=== PATIENT | female | born 1950 | race American Indian/Alaskan Native ===

== ENCOUNTER 2017-06-25 13:01 | Inpatient (IN) | payer MEDICARE ==
--- NOTE | 2017-06-25 13:56 | Emergency Department Report ---
Chief Complaint: GI Bleed Stated Complaint: RECTAL BLEEDING Time Seen by Provider: 06/25/17 13:53 - HPI History of Present Illness: pt c/o bleeding from rectum that started this morning - ROS Review of Systems: - abd pain - Exam Physical Exam: pt looks well, non toxic. abd is soft and non tender MSE screening note: Focused history and physical exam performed. Due to findings the following was ordered: ekg, labs ED Disposition for MSE Condition: Stable
[2017-06-25 14:30] LABS: Basophils % (Auto) 0.5 % (0.0-1.8); Eosinophils % (Auto) 0.7 % (0.0-4.3); Hematocrit 35.5 % (30.3-42.9); Hemoglobin 11.8 gm/dl (10.1-14.3); Mean Corpuscular HGB Conc 33 % (30-34); Mean Corpuscular Hemoglobin 30 pg (28-32); Mean Corpuscular Volume 89 fl (79-97); Platelet Count 235 K/mm3 (140-440); Red Cell Distribution Width 13.2 % (13.2-15.2); White Blood Count 9.7 K/mm3 (4.5-11.0)
[2017-06-25 14:41] LABS: INR 0.95 (0.87-1.13)
[2017-06-25 14:42] LABS: Partial Thromboplastin Time 29.8 Sec. (24.2-36.6)
[2017-06-25 14:48] LABS: Albumin 4.1 g/dL (3.9-5); Albumin/Globulin Ratio 1.1 %; BUN/Creatinine Ratio 14.11; Bilirubin,Total 0.4 mg/dL (0.1-1.2); Calcium 8.7 mg/dL (8.4-10.2); Chloride 100.2 mmol/L (98-107); Potassium 4.2 mmol/L (3.6-5.0); Total Protein 7.7 g/dL (6.3-8.2)
[2017-06-25 18:11] LABS: Bilirubin,Urine NEG (Negative); Blood,Urine LG (Negative); Ketones,Urine NEG (Negative); Leukocyte Esterase,Urine LG (Negative); Nitrite,Urine NEG (Negative); Urobilinogen,Urine < 2.0 mg/dL (<2.0)
[2017-06-25 18:14] LABS: RBC,Urine > 182.0 /HPF (0.0-6.0); WBC,Urine > 182.0 /HPF (0.0-6.0)
--- NOTE | 2017-06-26 00:02 | Emergency Department Report ---
ED GI Bleed HPI - General Chief complaint: GI Bleed Stated complaint: RECTAL BLEEDING Time Seen by Provider: 06/25/17 13:53 Source: patient, family Mode of arrival: Ambulatory Limitations: No Limitations - History of Present Illness MD complaint: blood on toilet paper -: This morning Severity scale (0 -10): 5 Quality: painless Consistency: intermittent Improves with: none Worsens with: none Associated Symptoms: denies other symptoms. denies: abdominal pain, nausea, vomiting, epistaxis, fever/chills, loss of appetite - Related Data Home Medications Medication Instructions Recorded Confirmed Last Taken Aspirin 81 mg PO DAILY 06/25/17 06/26/17 06/24/17 08:00 Calcitriol [Rocaltrol] 0.25 mcg PO QDAY 06/25/17 06/26/17 06/24/17 08:00 Donepezil HCl 20 mg PO DAILY 06/25/17 06/26/17 06/24/17 08:00 Ferrous Sulfate [Feosol] 325 mg PO BID 06/25/17 06/26/17 06/24/17 08:00 Furosemide [Lasix TAB] 40 mg PO QDAY 06/25/17 06/26/17 06/24/17 08:00 Simvastatin [Zocor TAB] 20 mg PO QHS 06/25/17 06/26/17 06/24/17 21:00 Vitamin B Complex 1 each PO DAILY 06/25/17 06/26/17 06/24/17 08:00 amLODIPine [Norvasc] 10 mg PO DAILY 06/25/17 06/26/17 06/24/17 08:00 Allergies Allergy/AdvReac Type Severity Reaction Status Date / Time No Known Allergies Allergy Unverified 06/25/17 13:57 ED Review of Systems ROS: Stated complaint: RECTAL BLEEDING Other details as noted in HPI Comment: All other systems reviewed and negative Constitutional: denies: chills, fever Respiratory: denies: cough, shortness of breath Cardiovascular: denies: chest pain Gastrointestinal: hematochezia. denies: abdominal pain, nausea, vomiting, diarrhea, constipation Genitourinary: dysuria Neurological: denies: headache, paresthesias ED Past Medical Hx - Past Medical History Previous Medical History?: Yes Hx Hypertension: Yes Hx CVA: Yes Hx Diabetes: Yes Hx Renal Disease: Yes (no dialysis) - Surgical History Past Surgical History?: No - Social History Smoking Status: Never Smoker Substance Use Type: Prescribed - Medications Home Medications: Home Medications Medication Instructions Recorded Confirmed Last Taken Type Aspirin 81 mg PO DAILY 06/25/17 06/26/17 06/24/17 08:00 History Calcitriol [Rocaltrol] 0.25 mcg PO QDAY 06/25/17 06/26/17 06/24/17 08:00 History Donepezil HCl 20 mg PO DAILY 06/25/17 06/26/17 06/24/17 08:00 History Ferrous Sulfate [Feosol] 325 mg PO BID 06/25/17 06/26/17 06/24/17 08:00 History Furosemide [Lasix TAB] 40 mg PO QDAY 06/25/17 06/26/17 06/24/17 08:00 History Simvastatin [Zocor TAB] 20 mg PO QHS 06/25/17 06/26/17 06/24/17 21:00 History Vitamin B Complex 1 each PO DAILY 06/25/17 06/26/17 06/24/17 08:00 History amLODIPine [Norvasc] 10 mg PO DAILY 06/25/17 06/26/17 06/24/17 08:00 History ED Physical Exam - General Limitations: No Limitations General appearance: alert, in no apparent distress - ENT ENT exam: Present: normal exam - Neck Neck exam: Absent: tenderness - Respiratory Respiratory exam: Present: normal lung sounds bilaterally. Absent: respiratory distress, wheezes, rales, rhonchi, chest wall tenderness - Cardiovascular Cardiovascular Exam: Present: regular rate, normal rhythm, normal heart sounds - GI/Abdominal GI/Abdominal exam: Present: soft, normal bowel sounds. Absent: distended, tenderness, guarding, rebound, rigid, mass, bruit, pulsatile mass, hernia - Neurological Exam Neurological exam: Present: alert, oriented X3, CN II-XII intact - Skin Skin exam: Present: warm, intact, normal color ED Course Vital Signs 06/25/17 06/25/17 06/26/17 13:54 23:49 01:28 Temperature 98.3 F Pulse Rate 88 72 75 Respiratory 20 20 16 Rate Blood Pressure 157/87 Blood Pressure 148/71 144/73 [Left] O2 Sat by Pulse 100 99 100 Oximetry - Reevaluation(s) Reevaluation #1: 06/26/17 01:[address] Amado for admission. ED Medical Decision Making - Lab Data Result diagrams: 06/25/17 14:04 06/25/17 14:04 Critical care attestation.: If time is entered above; I have spent that time in minutes in the direct care of this critically ill patient, excluding procedure time. ED Disposition Clinical Impression: GI bleed Disposition: DC-09 OP ADMIT IP TO THIS HOSP Is pt being admited?: Yes Does the pt Need Aspirin: No Condition: Stable Referrals: PRIMARY CARE, [Primary Care Provider] - 3-5 Days Forms: Accompanied Note
[2017-06-26] MEDS ORDERED: MILK OF MAGNESIA PO PRN (01:34)
[2017-06-26] MEDS ORDERED: PROVENTIL IH PRN (01:34)
[2017-06-26] MEDS ORDERED: DULCOLAX PR PRN (01:34)
[2017-06-26] MEDS ORDERED: TYLENOL PO PRN (01:34)
[2017-06-26] MEDS ORDERED: ZOFRAN IV PRN (01:34)
--- NOTE | 2017-06-26 01:38 | History and Physical Report ---
<JENNIFER FREEMAN - Last Filed: 06/26/17 03:42> History of Present Illness Date of admission: 06/26/17 01:34 Medications and Allergies Allergies Allergy/AdvReac Type Severity Reaction Status Date / Time No Known Allergies Allergy Unverified 06/25/17 13:57 Home Medications Medication Instructions Recorded Confirmed Last Taken Type Aspirin 81 mg PO DAILY 06/25/17 06/26/17 06/24/17 08:00 History Calcitriol [Rocaltrol] 0.25 mcg PO QDAY 06/25/17 06/26/17 06/24/17 08:00 History Donepezil HCl 20 mg PO DAILY 06/25/17 06/26/17 06/24/17 08:00 History Ferrous Sulfate [Feosol] 325 mg PO BID 06/25/17 06/26/17 06/24/17 08:00 History Furosemide [Lasix TAB] 40 mg PO QDAY 06/25/17 06/26/17 06/24/17 08:00 History Simvastatin [Zocor TAB] 20 mg PO QHS 06/25/17 06/26/17 06/24/17 21:00 History Vitamin B Complex 1 each PO DAILY 06/25/17 06/26/17 06/24/17 08:00 History amLODIPine [Norvasc] 10 mg PO DAILY 06/25/17 06/26/17 06/24/17 08:00 History Active Meds: Active Medications Acetaminophen (Tylenol) 650 mg PO Q4H PRN PRN Reason: Pain MILD(1-3)/Fever >100.5/CHIN Albuterol (Proventil) 2.5 mg IH Q4HRT PRN PRN Reason: Shortness Of Breath Bisacodyl (Dulcolax) 10 mg MS QDAY PRN PRN Reason: Constipation unrelieved by MOM Magnesium Hydroxide (Milk Of Magnesia) 30 ml PO Q4H PRN PRN Reason: Constipation Ondansetron HCl (Zofran) 4 mg IV Q8H PRN PRN Reason: N/V unrelieved by Reglan Pantoprazole Sodium (Protonix) 40 mg IV BID CARLIN Exam - Constitutional Vitals: Temp Pulse Resp BP Pulse Ox 98.3 F 75 16 144/73 100 06/25/17 13:54 06/26/17 01:28 08/01/17 01:28 06/26/17 01:28 06/26/17 01:28 Results - Labs CBC & Chem 7: 06/25/17 14:04 06/25/17 14:04 <ALISHA,ADY J - Last Filed: 06/26/17 07:42> History of Present Illness Chief complaint: I have blood in my stool History of present illness: 66 YO Female with HTN, DM, CVA, presents to ED for evaluation. Pt states that she has experienced bleeding from her rectum. Pt states merary she has blood on her toilet paper after a bowel movement. Pt has experienced these symptoms for the past 2 days with persistent symptoms over the past 1 day. Pt denies fever, chills, CP, Palpitations, NVD, syncope, recent ill contacts, unintentional weight loss, night sweats, change in stool size or caliber. Past History Past Medical History: diabetes, hypertension, renal failure, stroke Past Surgical History: No surgical history, Other (reviewed) Social history: single. denies: smoking, alcohol abuse, prescription drug abuse Family history: hypertension Medications and Allergies Active Meds: Active Medications Acetaminophen (Tylenol) 650 mg PO Q4H PRN PRN Reason: Pain MILD(1-3)/Fever >100.5/CHIN Albuterol (Proventil) 2.5 mg IH Q4HRT PRN PRN Reason: Shortness Of Breath Bisacodyl (Dulcolax) 10 mg MS QDAY PRN PRN Reason: Constipation unrelieved by MOM Magnesium Hydroxide (Milk Of Magnesia) 30 ml PO Q4H PRN PRN Reason: Constipation Ondansetron HCl (Zofran) 4 mg IV Q8H PRN PRN Reason: N/V unrelieved by Reglan Review of Systems All systems: negative Constitutional: no weight loss, no fever Ears, nose, mouth and throat: no ear pain Breasts: no swelling Cardiovascular: no chest pain Respiratory: no cough Gastrointestinal: other (blood in stool), no abdominal pain Genitourinary Female: no hematuria Rectal: no pain Musculoskeletal: no neck stiffness Integumentary: no rash Neurological: no weakness Psychiatric: no anxiety Hematologic/Lymphatic: no easy bruising Allergic/Immunologic: no urticaria Exam - Constitutional Vitals: Temp Pulse Resp BP Pulse Ox 98.3 F 75 16 144/73 100 06/25/17 13:54 06/26/17 01:28 06/26/17 01:28 06/26/17 01:28 06/26/17 01:28 General appearance: Present: mild distress - EENT Eyes: Present: PERRL ENT: hearing intact, clear oral mucosa - Neck Neck: Present: supple, normal ROM - Respiratory Respiratory effort: normal Respiratory: bilateral: CTA - Cardiovascular Heart Sounds: Present: S1 & S2. Absent: rub, click - Extremities Extremities: pulses symmetrical, No edema Peripheral Pulses: within normal limits - Abdominal General gastrointestinal: Present: soft, non-tender, non-distended, normal bowel sounds Female genitourinary: Present: normal - Integumentary Integumentary: Present: clear, warm, dry - Musculoskeletal Musculoskeletal: gait normal, strength equal bilaterally - Psychiatric Psychiatric: appropriate mood/affect, intact judgment & insight - Neurologic Neurologic: CNII-XII intact, moves all extremities Results - Labs CBC & Chem 7: 06/25/17 14:04 06/25/17 14:04 Labs: Abnormal lab results 06/25/17 06/25/17 06/25/17 Range/Units 14:04 14:04 17:51 [place] % (Auto) 8.0 H (0.0-7.3) % Seg Neutrophils % 75.3 H (40.0-70.0) % BUN 24 H (7-17) mg/dL Creatinine 1.7 H (0.7-1.2) mg/dL Urine WBC (Auto) > 182.0 H (0.0-6.0) /HPF Assessment and Plan - Patient Problems (1) GI bleed Current Visit: Yes Status: Acute Qualifiers: GI bleed type/associated pathology: G Gastritis type: G Plan to address problem: GI consulted, PPI therapy, repeat CBC, supportive care, (2) HTN (hypertension) Current Visit: Yes Status: Acute Qualifiers: Hypertension type: H Plan to address problem: monitor bp q shift, resume home medication. (3) Diabetes Current Visit: Yes Status: Acute Qualifiers: Diabetes mellitus type: D Diabetes mellitus complication status: D Diabetes mellitus complication detail: D Diabetic retinopathy severity: D Proliferative retinopathy type: P Diabetes mellitus macular edema: D Diabetes mellitus group home insulin use: D Laterality: L Chronic kidney disease stage: C Plan to address problem: ADA diet, insulin, accu check (4) Renal failure (ARF), acute on chronic Current Visit: Yes Status: Acute Qualifiers: Acute renal failure type: A Chronic kidney disease stage: C Plan to address problem: IVF replacement, monitor uop q shift, (5) DVT prophylaxis Current Visit: Yes Status: Acute
--- NOTE | 2017-06-26 07:03 | Admit Criteria Form ---
Admission Criteria Documentation: GASTROINTESTINAL BLEEDING, LOWER Clinical Indications for Admission to Inpatient Care ( Place 'X' for any and all applicable criteria): Admission is indicated for ANY ONE of the following(1)(2)(3)(4)(5): [ ]I. Active gross bleeding per rectum [X ]II. Inpatient admission required rather than observation care (Also use Gastrointestinal Bleeding, Lower: Observation Care as appropriate) because of ANY ONE of the following: [ ]a) Hemodynamic instability that is severe or persistent [ ]b) Anemia requiring inpatient admission as indicated by ALL of the following: [ ]1) Presence of significant clinical finding indicated by ANY ONE of the following: [ ]A. Tachycardia for age [ ]B. Orthostatic vital sign changes [ ]C. Cognitive impairment [ ]D. Heart failure [ ]E. Chest pain [ ]F. Exertional dyspnea [ ]G. Other findings suggesting inadequate perfusion (eg, peripheral or myocardial ischemia, end organ dysfunction) [ ]2) Initial (eg, emergency department, observation care) treatment with transfusion or volume replacement is judged inappropriate (due to severity of the finding) or has been ineffective [ ]c) Severe pain requiring acute inpatient management [ ]d) Absent bowel sounds with complete ileus [ ]e) Signs of intestinal obstruction or peritonitis [A] [ ]f) High-risk low platelet count [ ]g) Severe electrolyte abnormalities requiring inpatient care [ ]h) Acute renal failure [ ]i) High fever or infection requiring inpatient admission as indicated by ANY ONE of the following(8)(9): [ ]1) Appropriate outpatient or observation care antimicrobial treatment unavailable, not effective, or not feasible Documented bacteremia [ ]2) Documented bacteremia [ ]3) Temperature greater than 104.9 degrees F ( 40.5 degrees C) (oral) [ ]4) Temperature greater than 103.1 degrees F ( 39.5 degrees C) (oral) or less than 96.8 degrees F (36 degrees C) (rectal) that does not respond to all emergency treatment measures [ ]j) IV fluid to replace significant ongoing losses ( greater than 3 L/m2 per day) [ ]k) Immediate inpatient surgery needed [ ]l) Parenteral nutrition regimen that must be implemented on inpatient basis [X ]m) Other condition, treatment or monitoring requiring inpatient admission [ ]III. Unstable comorbid illness (renal, hepatic, pulmonary, hematologic, neurologic, or cardiac) [ ]IV. Failure to control bleeding after colonoscopy [ ]V. Coagulopathy [ ]. Suspected or known ischemic colitis(6) [ ]VII. Previous aortic graft placement or known aortic aneurysm Extended stay beyond goal length of stay may be needed for(3)(4)(28): [ ]a) Emergency surgery [ ]b) Coagulation abnormalities(26) [ ]c) Recurrent or persistent bleeding, continued vital sign instability(27)( 28) [ ]d) Active comorbidities (eg, renal insufficiency, heart failure, pre- existing liver disease) The original [employer] content created by [employer] has been revised. The portions of the content which have been revised are identified through the use of italic text or in bold, and [facility] has neither reviewed nor approved the modified material. All other unmodified content is copyright [employer]. Please see references footnoted in the original [employer] edition 2016 Admission Criteria Met: Yes
--- NOTE | 2017-06-26 11:02 | Gastroenterology Consultation ---
<MARIANNE NEVES - Last Filed: 06/26/17 10:55> History of Present Illness - Reason for Consult Consult date: 06/26/17 GI bleed Requesting physician: ADY BRITO - History of Present Illness Patient is a 66 y/o female who was admitted for a GI Bleed. She reports bright red blood from her rectum yesterday that was noted to be in the toilet and on TP. Stool was occult positive. This morning pt was resting in bed w/o acute distress. She denies CP, SOB, dizziness, abd pain, fever, wt loss, N/V, melena, hematemesis, diarrhea, or constipation. Reports last BM a couple of days ago with brown stool. States bright red blood from rectum yesterday was present w/o having a BM. No hx of liver diease. On daily ASA at home. No previous colonoscopy. No known Fhx of colon CA. Past History Past Medical History: diabetes, hypertension, renal failure, stroke Past Surgical History: No surgical history, Other (reviewed) Social history: single. denies: smoking, alcohol abuse, prescription drug abuse Family history: hypertension Medications and Allergies Allergies Allergy/AdvReac Type Severity Reaction Status Date / Time No Known Allergies Allergy Unverified 06/25/17 13:57 Home Medications Medication Instructions Recorded Confirmed Last Taken Type Aspirin 81 mg PO DAILY 06/25/17 06/26/17 06/24/17 08:00 History Calcitriol [Rocaltrol] 0.25 mcg PO QDAY 06/25/17 06/26/17 06/24/17 08:00 History Donepezil HCl 20 mg PO DAILY 06/25/17 06/26/17 06/24/17 08:00 History Ferrous Sulfate [Feosol] 325 mg PO BID 06/25/17 06/26/17 06/24/17 08:00 History Furosemide [Lasix TAB] 40 mg PO QDAY 06/25/17 06/26/17 06/24/17 08:00 History Simvastatin [Zocor TAB] 20 mg PO QHS 06/25/17 06/26/17 06/24/17 21:00 History Vitamin B Complex 1 each PO DAILY 06/25/17 06/26/17 06/24/17 08:00 History amLODIPine [Norvasc] 10 mg PO DAILY 06/25/17 06/26/17 06/24/17 08:00 History Active Meds: Active Medications Acetaminophen (Tylenol) 650 mg PO Q4H PRN PRN Reason: Pain MILD(1-3)/Fever >100.5/CHIN Albuterol (Proventil) 2.5 mg IH Q4HRT PRN PRN Reason: Shortness Of Breath Bisacodyl (Dulcolax) 10 mg AR QDAY PRN PRN Reason: Constipation unrelieved by MOM Magnesium Hydroxide (Milk Of Magnesia) 30 ml PO Q4H PRN PRN Reason: Constipation Ondansetron HCl (Zofran) 4 mg IV Q8H PRN PRN Reason: N/V unrelieved by Reglan Pantoprazole Sodium (Protonix) 40 mg IV BID [facility] Review of Systems - Review of Systems All systems: negative Gastrointestinal: BRBPR Exam - Constitutional Vital Signs: Temp Pulse Resp BP Pulse Ox 97.9 F 74 20 152/81 100 06/26/17 07:35 06/26/17 07:35 06/26/17 07:35 06/26/17 07:35 06/26/17 07:35 General appearance: no acute distress, well-nourished - EENT Eyes: PERRL, EOM intact ENT: hearing intact - Neck Neck: supple, normal ROM - Respiratory Respiratory: bilateral: CTA - Cardiovascular Rhythm: regular Heart Sounds: Present: S1 & S2 Extremities: No edema - Gastrointestinal General gastrointestinal: Present: soft, non-tender, non-distended, normal bowel sounds - Integumentary Integumentary: Present: warm, dry - Neurologic Neurological: alert and oriented x3 - Psychiatric Psychiatric: appropriate mood/affect, cooperative - Labs CBC & Chem 7: 06/25/17 14:04 06/25/17 14:04 Assessment and Plan 1.GI bleed 2.hematochezia -HGB 11.8 -continue to monitor H&H and transfuse as needed -no active signs of bleeding overnight or this morning -currently hemodynamically stable -clear liquid diet today -NPO after MN -will schedule for colonoscopy for tomorrow -will follow <DALE LANDA - Last Filed: 06/27/17 08:17> Medications and Allergies Active Meds: Active Medications Acetaminophen (Tylenol) 650 mg PO Q4H PRN PRN Reason: Pain MILD(1-3)/Fever >100.5/CHIN Albuterol (Proventil) 2.5 mg IH Q4HRT PRN PRN Reason: Shortness Of Breath Bisacodyl (Dulcolax) 10 mg AR QDAY PRN PRN Reason: Constipation unrelieved by MOM Sodium Chloride (Nacl 0.9% 1000 Ml) 1,000 mls @ 75 mls/hr IV DIRECT [facility] Last Admin: 06/26/17 19:46 Dose: 75 mls/hr Magnesium Hydroxide (Milk Of Magnesia) 30 ml PO Q4H PRN PRN Reason: Constipation Ondansetron HCl (Zofran) 4 mg IV Q8H PRN PRN Reason: N/V unrelieved by Reglan Pantoprazole Sodium (Protonix) 40 mg IV BID [facility] Last Admin: 06/26/17 21:48 Dose: 40 mg Exam - Constitutional Vital Signs: Temp Pulse Resp BP Pulse Ox 97.9 F 88 20 162/73 100 06/27/17 07:35 06/27/17 07:35 06/27/17 07:35 06/27/17 07:35 06/27/17 07:35 - Labs CBC & Chem 7: 06/27/17 03:40 06/26/17 12:10 Lab Results: Laboratory Results - last 24 hr 06/26/17 06/26/17 06/26/17 12:10 12:39 15:55 WBC RBC Hgb 12.2 Hct 36.5 MCV MCH MCHC RDW Plt Count Lymph % (Auto) [place] % (Auto) Eos % (Auto) Baso % (Auto) Lymph # [place] # Eos # Baso # Seg Neutrophils % Seg Neutrophils # BUN 25 H Creatinine 1.5 H Estimated GFR 42 POC Glucose 68 L 06/26/17 06/27/17 06/27/17 21:14 03:40 06:26 WBC 8.4 RBC 3.86 Hgb 11.7 Hct 34.2 MCV 89 MCH 30 MCHC 34 RDW 13.1 L Plt Count 206 Lymph % (Auto) 24.9 [place] % (Auto) 8.3 H Eos % (Auto) 2.4 Baso % (Auto) 0.7 Lymph # 2.1 [place] # 0.7 Eos # 0.2 Baso # 0.1 Seg Neutrophils % 63.7 Seg Neutrophils # 5.4 BUN Creatinine Estimated GFR POC Glucose 91 90 Assessment and Plan Patient seen and examined on 06/26. Agree with note by Marianne Neves. H/H and vitals stable. Will plan for colonoscopy tomorrow. Further recommendations following procedure.
[2017-06-26 12:53] LABS: Hematocrit 36.5 % (30.3-42.9); Hemoglobin 12.2 gm/dl (10.1-14.3)
[2017-06-26] MEDS ORDERED: GOLYTELY PO ONE (13:00)
[2017-06-26] MEDS: PROTONIX IV SCH ×2 (13:34→21:48)
--- NOTE | 2017-06-26 14:16 | Progress Note ---
Assessment and Plan Assessment and plan: Patient is a 66 y/o female who was admitted for a GI Bleed. She reports bright red blood from her rectum yesterday that was noted to be in the toilet and on TP. Stool was occult positive. This morning pt was resting in bed w/o acute distress. She denies CP, SOB, dizziness, abd pain, fever, wt loss, N/V, melena, hematemesis, diarrhea, or constipation. Reports last BM a couple of days ago with brown stool. States bright red blood from rectum yesterday was present w/o having a BM. No hx of liver diease. On daily ASA at home. No previous colonoscopy. No known Fhx of colon CA. GI bleed supportive care, GI eval and for Colonoscopy in Am, iv fluids, PPI. Hemodynamically stable Hematochezia As noted above. Also monitor H/H Diabetes mellitus Diet controlled per patient. 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 Continue to monitor. Work up if worse, pt reports pending outpatient evaluation. Hypertension Controlled, continue current treatment. dvt/gi Prophy Plan of care discussed with Patient in detail and also with GI. Disposition: Discharge in Am if clinically stable post Colonoscopy and if Ok with GI History Interval history: Patient seen and examined this morning admitted with rectal bleed. She states she had one episode today. She denies any nausea vomiting or diarrhea. Denies any recent change in medication or NSAID use. No other adverse events reported by nursing staff Hospitalist Physical - Physical exam Narrative exam: VITAL SIGNS: Reviewed. GENERAL: The patient appeared well nourished and normally developed. Vital signs as documented. HEAD: No signs of head trauma. EYES: Pupils are equal. Extraocular motions intact. EARS: Hearing grossly intact. MOUTH: Oropharynx is normal. NECK: No adenopathy, no JVD. CHEST: Chest with clear breath sounds bilaterally. No wheezes, rales, or rhonchi. CARDIAC: Regular rate and rhythm. S1 and S2, without murmurs, gallops, or rubs. VASCULAR: No Edema. Peripheral pulses normal and equal in all extremities. ABDOMEN: Soft, without detectable tenderness. No sign of distention. No rebound or guarding, and no masses palpated. Bowel Sounds normal. MUSCULOSKELETAL: Good range of motion of all major joints. Extremities without clubbing, cyanosis or edema. NEUROLOGIC EXAM: Alert and oriented x 3. No focal sensory or strength deficits. Speech normal. Follows commands. PSYCHIATRIC: Mood normal. SKIN: No rash or lesions. - Constitutional Vitals: Temp Pulse Resp BP Pulse Ox 97.5 F L 83 20 150/76 100 06/26/17 12:45 06/26/17 12:45 06/26/17 12:45 06/26/17 12:45 06/26/17 14:03 General appearance: Present: mild distress Results - Labs CBC & Chem 7: 06/26/17 12:39 06/26/17 12:10 Labs: Laboratory Last Values WBC 9.7 K/mm3 (4.5-11.0) 06/25/17 14:04 RBC 4.00 M/mm3 (3.65-5.03) 06/25/17 14:04 Hgb 12.2 gm/dl (10.1-14.3) 06/26/17 12:39 Hct 36.5 % (30.3-42.9) 06/26/17 12:39 MCV 89 fl (79-97) 06/25/17 14:04 MCH 30 pg (28-32) 06/25/17 14:04 MCHC 33 % (30-34) 06/25/17 14:04 RDW 13.2 % (13.2-15.2) 06/25/17 14:04 Plt Count 235 K/mm3 (140-440) 06/25/17 14:04 Lymph % (Auto) 15.5 % (13.4-35.0) 06/25/17 14:04 [place] % (Auto) 8.0 % (0.0-7.3) H 06/25/17 14:04 Eos % (Auto) 0.7 % (0.0-4.3) 06/25/17 14:04 Baso % (Auto) 0.5 % (0.0-1.8) 06/25/17 14:04 Lymph # 1.5 K/mm3 (1.2-5.4) 06/25/17 14:04 [place] # 0.8 K/mm3 (0.0-0.8) 06/25/17 14:04 Eos # 0.1 K/mm3 (0.0-0.4) 06/25/17 14:04 Baso # 0.0 K/mm3 (0.0-0.1) 06/25/17 14:04 Seg Neutrophils % 75.3 % (40.0-70.0) H 06/25/17 14:04 Seg Neutrophils # 7.3 K/mm3 (1.8-7.7) 06/25/17 14:04 PT 12.6 Sec. (12.2-14.9) 06/25/17 14:04 INR 0.95 (0.87-1.13) 06/25/17 14:04 APTT 29.8 Sec. (24.2-36.6) 06/25/17 14:04 Sodium 140 mmol/L (137-145) 06/25/17 14:04 Potassium 4.2 mmol/L (3.6-5.0) 06/25/17 14:04 Chloride 100.2 mmol/L (98-107) 06/25/17 14:04 Carbon Dioxide 26 mmol/L (22-30) 06/25/17 14:04 Anion Gap 18 mmol/L 06/25/17 14:04 BUN 25 mg/dL (7-17) H 06/26/17 12:10 Creatinine 1.5 mg/dL (0.7-1.2) H 06/26/17 12:10 Estimated GFR 42 ml/min 06/26/17 12:10 BUN/Creatinine Ratio 14.11 % 06/25/17 14:04 Glucose 95 mg/dL (65-100) 06/25/17 14:04 Calcium 8.7 mg/dL (8.4-10.2) 06/25/17 14:04 Total Bilirubin 0.40 mg/dL (0.1-1.2) 06/25/17 14:04 AST 20 units/L (5-40) 06/25/17 14:04 ALT 17 units/L (7-56) 06/25/17 14:04 Alkaline Phosphatase 60 units/L (35-129) 06/25/17 14:04 Total Protein 7.7 g/dL (6.3-8.2) 06/25/17 14:04 Albumin 4.1 g/dL (3.9-5) 06/25/17 14:04 Albumin/Globulin Ratio 1.1 % 06/25/17 14:04 Urine Color Red (Yellow) 06/25/17 17:51 Urine Turbidity Cloudy (Clear) 06/25/17 17:51 Urine pH 6.0 (5.0-7.0) 06/25/17 17:51 Ur Specific [place] 1.009 (1.003-1.030) 06/25/17 17:51 Urine Protein 100 mg/dl mg/dL (Negative) 06/25/17 17:51 Urine Glucose (UA) Neg mg/dL (Negative) 06/25/17 17:51 Urine Ketones Neg mg/dL (Negative) 06/25/17 17:51 Urine Blood Lg (Negative) 06/25/17 17:51 Urine Nitrite Neg (Negative) 06/25/17 17:51 Urine Bilirubin Neg (Negative) 06/25/17 17:51 Urine Urobilinogen < 2.0 mg/dL (<2.0) 06/25/17 17:51 Ur Leukocyte Esterase Lg (Negative) 06/25/17 17:51 Urine WBC (Auto) > 182.0 /HPF (0.0-6.0) H 06/25/17 17:51 Urine RBC (Auto) > 182.0 /HPF (0.0-6.0) 06/25/17 17:51 Blood Type A POSITIVE 06/25/17 14:04 Antibody Screen TNR 06/25/17 14:04 BRIAN Antibody Screen Negative 06/25/17 14:04
[2017-06-26] MEDS ORDERED: NACL 0.9% 1000 ML 1,000 ML IV SCH (15:00)
[2017-06-27 04:44] LABS: Basophils % (Auto) 0.7 % (0.0-1.8); Eosinophils % (Auto) 2.4 % (0.0-4.3); Hematocrit 34.2 % (30.3-42.9); Hemoglobin 11.7 gm/dl (10.1-14.3); Mean Corpuscular HGB Conc 34 % (30-34); Mean Corpuscular Hemoglobin 30 pg (28-32); Mean Corpuscular Volume 89 fl (79-97); Platelet Count 206 K/mm3 (140-440); Red Blood Count 3.86 M/mm3 (3.65-5.03); Red Cell Distribution Width 13.1 % (13.2-15.2); White Blood Count 8.4 K/mm3 (4.5-11.0)
--- NOTE | 2017-06-27 08:52 | Anesthesia Consultation ---
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
--- NOTE | 2017-06-27 08:52 | Anesthesia Day of Surgery ---
Anesthesia Day of Surgery - Day of Surgery Patient Examined: Yes Patient H&P Reviewed: Yes Patient is NPO: Yes
[2017-06-27] MEDS ORDERED: NACL 0.9% 1000 ML 1,000 ML IV SCH (09:00)
--- NOTE | 2017-06-27 09:31 | Discharge Summary ---
Providers - Providers Date of Admission: 06/26/17 01:34 Attending physician: SHELBIE HOLLEY MD 06/26/17 06:51 Consult to Physician [CONS] Routine Consulting Provider: LUZ LIM Reason For Exam: gi bleed Place consult to:: GI/PARVEEN LE Notified:: PARVEEN Phone number called:: IN HOUSE Was contact made?: Yes If yes, spoke with:: PARVEEN Time called:: 09:08 Primary care physician: G[employer]ER Hospitalization Reason for admission: rectal bleed Condition: Stable Hospital course: Patient is a 66 y/o female who was admitted for a GI Bleed. She reports bright red blood from her rectum yesterday that was noted to be in the toilet and on TP. Stool was occult positive. This morning pt was resting in bed w/o acute distress. She denies CP, SOB, dizziness, abd pain, fever, wt loss, N/V, melena, hematemesis, diarrhea, or constipation. Reports last BM a couple of days ago with brown stool. States bright red blood from rectum yesterday was present w/o having a BM. No hx of liver diease. On daily ASA at home. No previous colonoscopy. No known Fhx of colon CA. she proceeded to have a colonoscopy which revealed internal hemorrhoids there was no good visualization of small lesions due to poor prep. GI suspects hematochezia but an outpatient recommendation is discussed with the patient and she verbalized understanding and she will possibly need a full colonoscopy with better prep. No blood transfusion was indicated as hemoglobin remained stable kidney injury improved slightly. 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 GENERAL: The patient appeared well nourished and normally developed. Vital signs as documented. HEAD: No signs of head trauma. EYES: Pupils are equal. Extraocular motions intact. EARS: Hearing grossly intact. MOUTH: Oropharynx is normal. NECK: No adenopathy, no JVD. CHEST: Chest with clear breath sounds bilaterally. No wheezes, rales, or rhonchi. CARDIAC: Regular rate and rhythm. S1 and S2, without murmurs, gallops, or rubs. VASCULAR: No Edema. Peripheral pulses normal and equal in all extremities. ABDOMEN: Soft, without detectable tenderness. No sign of distention. No rebound or guarding, and no masses palpated. Bowel Sounds normal. MUSCULOSKELETAL: Good range of motion of all major joints. Extremities without clubbing, cyanosis or edema. NEUROLOGIC EXAM: Alert and oriented x 3. No focal sensory or strength deficits. Speech normal. Follows commands. PSYCHIATRIC: Mood normal. SKIN: No rash or lesions. - Constitutional Vitals: Temp Pulse Resp BP Pulse Ox 97.9 F 63 11 L 145/78 100 06/27/17 08:57 06/27/17 08:57 06/27/17 08:57 06/27/17 08:57 06/27/17 08:57 Plan Activity: advance as tolerated, up only with assistance Diet: low fat, diabetic Special Instructions: record daily BP diary Follow up with: SKY AMARO MD [Primary Care Provider] - 3-5 Days DALE LANDA MD [Staff Physician] - 7 Days Forms: Accompanied Note Prescriptions: Docusate Sodium [Colace] 100 mg PO BID #60 capsule Phenylephrine HCl/[place] Butter [Preparation H Suppository] 1 each RC DAILY 30 Days
[2017-06-27] MEDS ORDERED: DIPRIVAN 10 MG/ML IV ONE ×2 (10:01)
[2017-06-27] MEDS ORDERED: WATER FOR IRRIG STERILE IR ONE (10:05)
--- NOTE | 2017-06-27 10:37 | Post Operative Note ---
Pre-op diagnosis: hematochezia Post-op diagnosis: other (internal hemorrhoids, otherwise no obvious significant lesions. views were limited 2/2 prep however.) Findings: internal hemorrhoids, unable to r/o small lesions given poor prep. However, suspect hematochezia was related to internal hemorrhoids Procedure: colonoscopy: Findings: internal hemorrhoids, otherwise no obvious significant lesions. small polyps/other lesions unable to be ruled out however given quality of prep. Recommendations: okay to d/c home from GI stand point She should f/u in GI clinic after discharge (1-2 months). Review prior screening colonoscopy reports and discuss timing of next procedure stool softeners, and hemorrhoidal suppository as needed Anesthesia: MAC Surgeon: DALE LANDA Estimated blood loss: none Pathology: none Condition: stable Disposition: floor
--- NOTE | 2017-06-27 11:33 | Operative Report ---
PREOPERATIVE DIAGNOSIS: Hematochezia. POSTOPERATIVE DIAGNOSIS: Internal hemorrhoids, otherwise no significant findings (although views were limited due to prep). ANESTHESIA: Monitored anesthesia care. COMPLICATIONS: No immediate complications. ESTIMATED BLOOD LOSS: None. DESCRIPTION OF PROCEDURE: After consent was obtained, the patient was placed in left lateral decubitus position. The Fujinon colonoscope was inserted into the rectum and advanced to the cecum without difficulty. The patient tolerated the procedure well. The patient's vital signs were monitored continuously throughout the procedure. The quality of prep was fair/poor (for ruling out small lesions). FINDINGS: Moderate-sized internal hemorrhoids were seen on retroflexion view. Otherwise, no obvious significant findings were seen during the colonoscopy, although small lesions may have been missed given quality of prep IMPRESSION: 1. Internal hemorrhoids - likely source of patient's hematochezia. RECOMMENDATIONS: 1. High fiber diet daily. 2. Hemorrhoidal suppository daily as needed. 3. Follow up in GI clinic in 1-2 months after discharge. 4. We will determine timing of next colonoscopy depending on prior screening colonoscopy procedure reports. JOB# [id number] PÉREZ/YOSELIN QUESADA
[2017-06-27] MEDS ORDERED: PROTONIX PO SCH (12:00)
[2017-06-27] MEDS: PROTONIX IV SCH (12:45)
--- NOTE | 2017-06-27 14:46 | Post Anesthesia Evaluation ---
- Post Anesthesia Evaluation Patient Participated: Yes Airway Patent: Yes Stable Respiratory Function: Yes Nausea/Vomiting: No Temp > 96.8F: Yes Pain Manageable: Yes Adequeate Hydration: Yes Anesthesia Complications: No
[2017-06-27 16:22] VITALS: BP 115/56
== END 2017-06-27 17:45 | disposition home or self-care (01) | DRG 393 ==
LOC: ED 13:01 → 3A 06-26 01:34
PROVIDERS: ADMIT Internal Medicine; ATTEND Internal Medicine
PROC: 0DJD8ZZ Inspection of Lower Intestinal Tract, Via Natural or Artificial Opening Endoscopic (ICD-10-PCS; principal; 2017-06-27)
DX: K64.8 Other hemorrhoids (principal); N17.0 Acute kidney failure with tubular necrosis; K92.1 Melena; Z79.82 Long term (current) use of aspirin; Z86.73 Personal history of transient ischemic attack (TIA), and cerebral infarction without residual deficits; Z82.49 Family history of ischemic heart disease and other diseases of the circulatory system; I12.9 Hypertensive chronic kidney disease with stage 1 through stage 4 chronic kidney disease, or unspecified chronic kidney disease; E11.22 Type 2 diabetes mellitus with diabetic chronic kidney disease; N18.9 Chronic kidney disease, unspecified
CPT/HCPCS: 36415; 80053; 81001; 82271; 82565; 82962; 84520; 85014; 85018; 85025; 85610; 85730; 86850; 86900; 86901; 93005; 93010; 94760; 99285; C9113; J2704; J7030

== ENCOUNTER 2017-12-19 21:53 | Emergency (ER) | payer MEDICARE ==
[2017-12-19 23:44] LABS: Basophils % (Auto) 0.7 % (0.0-1.8); Eosinophils # (Auto) 0.1 K/mm3 (0.0-0.4); Eosinophils % (Auto) 0.9 % (0.0-4.3); Hematocrit 39.1 % (30.3-42.9); Hemoglobin 12.6 gm/dl (10.1-14.3); Lymphocytes # (Auto) 1.8 K/mm3 (1.2-5.4); Lymphocytes % (Auto) 26.6 % (13.4-35.0); Mean Corpuscular HGB Conc 32 % (30-34); Mean Corpuscular Hemoglobin 29 pg (28-32); Mean Corpuscular Volume 90 fl (79-97); Monocytes # (Auto) 0.4 K/mm3 (0.0-0.8); Monocytes % (Auto) 6.4 % (0.0-7.3); Platelet Count 255 K/mm3 (140-440); Red Blood Count 4.34 M/mm3 (3.65-5.03); Red Cell Distribution Width 13.5 % (13.2-15.2)
[2017-12-19 23:56] LABS: Calcium 8.6 mg/dL (8.4-10.2)
[2017-12-20] MEDS ORDERED: TORADOL ONE (00:11)
[2017-12-20] MEDS ORDERED: FLEXERIL ONE (00:11)
[2017-12-20 00:21] VITALS: BP 170/95
[2017-12-20 00:22] LABS: Bacteria,Urine 1+ /HPF (Negative); Bilirubin,Urine NEG (Negative); Blood,Urine MOD (Negative); Color,Urine Yellow (Yellow); Mucus,Urine FEW /HPF; Nitrite,Urine POS (Negative); Urobilinogen,Urine < 2.0 mg/dL (<2.0)
[2017-12-20 00:29] LABS: Amphetamine Screen,Urine PRESUMPTIVE NEGATIVE; Benzodiazepines Screen,Urine PRESUMPTIVE NEGATIVE; Cannabinoid Screen,Urine PRESUMPTIVE NEGATIVE; Cocaine Screen,Urine PRESUMPTIVE NEGATIVE; Methadone Screen,Urine PRESUMPTIVE NEGATIVE; Opiate Screen,Urine PRESUMPTIVE NEGATIVE
[2017-12-20] MEDS ORDERED: NORVASC PO ONE (01:05)
[2017-12-20] MEDS ORDERED: NACL 0.9% 1000 ML 1,000 ML IV ONE (01:05)
[2017-12-20] MEDS ORDERED: ROCEPHIN/NS 1 GM/50 ML 1 GM/50 ML BAG IV ONE (01:06)
[2017-12-20] MEDS ORDERED: cefTRIAXone 1 GM in NACL 0.9% 20 ML IV ONE (01:20)
--- NOTE | 2017-12-20 01:35 | Emergency Department Report ---
ED Psych HPI - General Chief Complaint: Medical Clearance Stated Complaint: MEDICAL CLEAR. Time Seen by Provider: 12/19/17 22:59 Source: patient Mode of arrival: Ambulatory Limitations: Other (dementia) - History of Present Illness Initial Comments: 67 year female the past medical history of dementia, CVA, diabetes, hypertension , and chronic renal insufficiency presents to the hospital with worsening cognitive behavior. Patient herself does not have any complaints. Alert and oriented 3 States she's been compliant with her medications. Daughter suggested different story. She states that patient has not taken her medications, running away from home, exhibiting more frequent combative behavior. They went to [place] prior to presenting here and was sent to the hospital for medical clearance. Patient has not had inpatient psychiatric therapy in the past. - Related Data Home Medications Medication Instructions Recorded Confirmed Last Taken Aspirin 81 mg PO DAILY 06/25/17 06/26/17 06/24/17 08:00 Calcitriol [Rocaltrol] 0.25 mcg PO QDAY 06/25/17 06/26/17 06/24/17 08:00 Donepezil HCl 10 mg PO DAILY 06/25/17 06/26/17 06/24/17 08:00 Ferrous Sulfate [Feosol 325 MG tab] 325 mg PO BID 06/25/17 06/26/17 06/24/17 08: 00 Furosemide [Lasix TAB] 20 mg PO QDAY 06/25/17 06/26/17 06/24/17 08:00 Simvastatin [Zocor TAB] 20 mg PO QHS 06/25/17 06/26/17 06/24/17 21:00 Vitamin B Complex 1 each PO DAILY 06/25/17 06/26/17 06/24/17 08:00 amLODIPine [Norvasc] 10 mg PO DAILY 06/25/17 06/26/17 06/24/17 08:00 Previous Rx's Medication Instructions Recorded Last Taken Type Docusate Sodium [Colace] 100 mg PO BID #60 capsule 06/27/17 Unknown Rx Phenylephrine HCl/[place] Butter 1 each RC DAILY 30 Days supp.rect 06/27/17 Unknown Rx [Preparation H Suppository] Allergies Allergy/AdvReac Type Severity Reaction Status Date / Time No Known Allergies Allergy Unverified 06/25/17 13:57 ED Review of Systems ROS: Stated complaint: MEDICAL CLEAR. Other details as noted in HPI Comment: All other systems reviewed and negative Other: Constitutional: No fevers chills Eyes: No eye pain visual changes or discharge ENT: No ear pain or throat pain Neck: Denies pain Respiratory: Denies cough wheezing shortness of breath Cardiovascular: Denies chest pain, palpitations, syncope GI: Denies abdominal pain, nausea, vomiting, diarrhea : Denies dysuria Musculoskeletal: Denies back pain Skin: Denies rash, lesions, erythema Neurologic: Denies headache, numbness, weakness Psychiatric: Denies suicidal ideation ED Past Medical Hx - Past Medical History Hx Hypertension: Yes Hx CVA: Yes Hx Diabetes: Yes Hx Renal Disease: Yes (no dialysis) Additional medical history: Dementia - Social History Smoking Status: Never Smoker Substance Use Type: None - Medications Home Medications: Home Medications Medication Instructions Recorded Confirmed Last Taken Type Aspirin 81 mg PO DAILY 06/25/17 06/26/17 06/24/17 08:00 History Calcitriol [Rocaltrol] 0.25 mcg PO QDAY 06/25/17 06/26/17 06/24/17 08:00 History Donepezil HCl 10 mg PO DAILY 06/25/17 06/26/17 06/24/17 08:00 History Ferrous Sulfate [Feosol 325 MG tab] 325 mg PO BID 06/25/17 06/26/17 06/24/17 08: 00 History Furosemide [Lasix TAB] 20 mg PO QDAY 06/25/17 06/26/17 06/24/17 08:00 History Simvastatin [Zocor TAB] 20 mg PO QHS 06/25/17 06/26/17 06/24/17 21:00 History Vitamin B Complex 1 each PO DAILY 06/25/17 06/26/17 06/24/17 08:00 History amLODIPine [Norvasc] 10 mg PO DAILY 06/25/17 06/26/17 06/24/17 08:00 History Docusate Sodium [Colace] 100 mg PO BID #60 capsule 06/27/17 Unknown Rx Phenylephrine HCl/[place] Butter 1 each RC DAILY 30 Days supp.rect 06/27/17 Unknown Rx [Preparation H Suppository] ED Physical Exam - General Limitations: No Limitations - Other Other exam information: General: No limitations, patient is alert in no acute distress Head exam: Atraumatic, normocephalic Eyes exam: Normal appearance, pupils equal reactive to light ENT: Moist mucous membrane, normal oropharynx Neck exam: Normal inspection, full range of motion, no meningismus nontender Respiratory exam: Clear to auscultation bilateral, no wheezes, rales, crackles Cardiovascular: Normal rate and rhythm, normal heart sounds Abdomen: Soft, nondistended, and nontender, with normal bowel sounds, no rebound, or guarding Extremity: Full range of motion normal inspection no deformity Back: Normal Inspection, full range of motion, no tenderness Neurologic: Alert, oriented x3, cranial nerves intact, no motor or sensory deficit, gait steady Psychiatric: normal affect, normal mood Skin: Warm, dry, intact ED Course Vital Signs 12/19/17 12/20/17 12/20/17 22:20 00:11 00:24 Temperature 97.4 F L Pulse Rate 107 H Pulse Rate [ 108 H Lying] Respiratory 20 20 Rate Blood Pressure 175/82 Blood Pressure 170/95 [Lying] O2 Sat by Pulse 100 Oximetry ED Medical Decision Making - Lab Data Result diagrams: 12/19/17 23:02 12/19/17 23:02 Lab Results 12/19/17 12/19/17 12/19/17 Range/Units 23:02 23:02 23:02 WBC (4.5-11.0) K/mm3 RBC (3.65-5.03) M/mm3 Hgb (10.1-14.3) gm/dl Hct (30.3-42.9) % MCV (79-97) fl MCH (28-32) pg MCHC (30-34) % RDW (13.2-15.2) % Plt Count (140-440) K/mm3 Lymph % (Auto) (13.4-35.0) % [place] % (Auto) (0.0-7.3) % Eos % (Auto) (0.0-4.3) % Baso % (Auto) (0.0-1.8) % Lymph # (1.2-5.4) K/mm3 [place] # (0.0-0.8) K/mm3 Eos # (0.0-0.4) K/mm3 Baso # (0.0-0.1) K/mm3 Seg Neutrophils % (40.0-70.0) % Seg Neutrophils # (1.8-7.7) K/mm3 Sodium 140 (137-145) mmol/L Potassium 3.9 (3.6-5.0) mmol/L Chloride 98.3 (98-107) mmol/L Carbon Dioxide 23 (22-30) mmol/L Anion Gap 23 mmol/L BUN 27 H (7-17) mg/dL Creatinine 1.5 H (0.7-1.2) mg/dL Estimated GFR 42 ml/min BUN/Creatinine Ratio 18 % Glucose 263 H (65-100) mg/dL Calcium 8.6 (8.4-10.2) mg/dL Urine Color (Yellow) Urine Turbidity (Clear) Urine pH (5.0-7.0) Ur Specific [place] (1.003-1.030) Urine Protein (Negative) mg/dL Urine Glucose (UA) (Negative) mg/dL Urine Ketones (Negative) mg/dL Urine Blood (Negative) Urine Nitrite (Negative) Urine Bilirubin (Negative) Urine Urobilinogen (<2.0) mg/dL Ur Leukocyte Esterase (Negative) Urine WBC (Auto) (0.0-6.0) /HPF Urine RBC (Auto) (0.0-6.0) /HPF U Epithel Cells (Auto) (0-13.0) /HPF Urine Bacteria (Auto) (Negative) /HPF Urine Mucus /HPF Salicylates < 0.3 L (2.8-20.0) mg/dL Urine Opiates Screen Urine Methadone Screen Acetaminophen < 15.0 (10.0-30.0) ug/mL Ur Barbiturates Screen Ur Phencyclidine Scrn Ur Amphetamines Screen U Benzodiazepines Scrn Urine Cocaine Screen U Marijuana (THC) Screen Drugs of Abuse Note Plasma/Serum Alcohol (0-0.07) gm% 12/19/17 12/19/17 12/19/17 Range/Units 23:02 23:02 23:32 WBC 6.8 (4.5-11.0) K/mm3 RBC 4.34 (3.65-5.03) M/mm3 Hgb 12.6 (10.1-14.3) gm/dl Hct 39.1 (30.3-42.9) % MCV 90 (79-97) fl MCH 29 (28-32) pg MCHC 32 (30-34) % RDW 13.5 (13.2-15.2) % Plt Count 255 (140-440) K/mm3 Lymph % (Auto) 26.6 (13.4-35.0) % [place] % (Auto) 6.4 (0.0-7.3) % Eos % (Auto) 0.9 (0.0-4.3) % Baso % (Auto) 0.7 (0.0-1.8) % Lymph # 1.8 (1.2-5.4) K/mm3 [place] # 0.4 (0.0-0.8) K/mm3 Eos # 0.1 (0.0-0.4) K/mm3 Baso # 0.0 (0.0-0.1) K/mm3 Seg Neutrophils % 65.4 (40.0-70.0) % Seg Neutrophils # 4.4 (1.8-7.7) K/mm3 Sodium (137-145) mmol/L Potassium (3.6-5.0) mmol/L Chloride (98-107) mmol/L Carbon Dioxide (22-30) mmol/L Anion Gap mmol/L BUN (7-17) mg/dL Creatinine (0.7-1.2) mg/dL Estimated GFR ml/min BUN/Creatinine Ratio % Glucose (65-100) mg/dL Calcium (8.4-10.2) mg/dL Urine Color Yellow (Yellow) Urine Turbidity Clear (Clear) Urine pH 5.0 (5.0-7.0) Ur Specific [place] 1.018 (1.003-1.030) Urine Protein 100 mg/dl (Negative) mg/dL Urine Glucose (UA) 50 (Negative) mg/dL Urine Ketones Neg (Negative) mg/dL Urine Blood Mod (Negative) Urine Nitrite Pos (Negative) Urine Bilirubin Neg (Negative) Urine Urobilinogen < 2.0 (<2.0) mg/dL Ur Leukocyte Esterase Lg (Negative) Urine WBC (Auto) 52.0 H (0.0-6.0) /HPF Urine RBC (Auto) 9.0 (0.0-6.0) /HPF U Epithel Cells (Auto) < 1.0 (0-13.0) /HPF Urine Bacteria (Auto) 1+ (Negative) /HPF Urine Mucus Few /HPF Salicylates (2.8-20.0) mg/dL Urine Opiates Screen Urine Methadone Screen Acetaminophen (10.0-30.0) ug/mL Ur Barbiturates Screen Ur Phencyclidine Scrn Ur Amphetamines Screen U Benzodiazepines Scrn Urine Cocaine Screen U Marijuana (THC) Screen Drugs of Abuse Note Plasma/Serum Alcohol < 0.01 (0-0.07) gm% 12/19/17 Range/Units 23:32 WBC (4.5-11.0) K/mm3 RBC (3.65-5.03) M/mm3 Hgb (10.1-14.3) gm/dl Hct (30.3-42.9) % MCV (79-97) fl MCH (28-32) pg MCHC (30-34) % RDW (13.2-15.2) % Plt Count (140-440) K/mm3 Lymph % (Auto) (13.4-35.0) % [place] % (Auto) (0.0-7.3) % Eos % (Auto) (0.0-4.3) % Baso % (Auto) (0.0-1.8) % Lymph # (1.2-5.4) K/mm3 [place] # (0.0-0.8) K/mm3 Eos # (0.0-0.4) K/mm3 Baso # (0.0-0.1) K/mm3 Seg Neutrophils % (40.0-70.0) % Seg Neutrophils # (1.8-7.7) K/mm3 Sodium (137-145) mmol/L Potassium (3.6-5.0) mmol/L Chloride (98-107) mmol/L Carbon Dioxide (22-30) mmol/L Anion Gap mmol/L BUN (7-17) mg/dL Creatinine (0.7-1.2) mg/dL Estimated GFR ml/min BUN/Creatinine Ratio % Glucose (65-100) mg/dL Calcium (8.4-10.2) mg/dL Urine Color (Yellow) Urine Turbidity (Clear) Urine pH (5.0-7.0) Ur Specific [place] (1.003-1.030) Urine Protein (Negative) mg/dL Urine Glucose (UA) (Negative) mg/dL Urine Ketones (Negative) mg/dL Urine Blood (Negative) Urine Nitrite (Negative) Urine Bilirubin (Negative) Urine Urobilinogen (<2.0) mg/dL Ur Leukocyte Esterase (Negative) Urine WBC (Auto) (0.0-6.0) /HPF Urine RBC (Auto) (0.0-6.0) /HPF U Epithel Cells (Auto) (0-13.0) /HPF Urine Bacteria (Auto) (Negative) /HPF Urine Mucus /HPF Salicylates (2.8-20.0) mg/dL Urine Opiates Screen Presumptive negative Urine Methadone Screen Presumptive negative Acetaminophen (10.0-30.0) ug/mL Ur Barbiturates Screen Presumptive negative Ur Phencyclidine Scrn Presumptive negative Ur Amphetamines Screen Presumptive negative U Benzodiazepines Scrn Presumptive negative Urine Cocaine Screen Presumptive negative U Marijuana (THC) Screen Presumptive negative Drugs of Abuse Note Disclamer Plasma/Serum Alcohol (0-0.07) gm% - Medical Decision Making Dementia Possible acute delirium and given positive UTI UTI Rocephin IV initiated Macrobid by mouth will be continued Hypertension Asymptomatic Previous history Medications noncompliant Most recent medications will be reinitiated Mild tachycardia Normal saline initiated May also be due secondary to agitated Renal insufficiency Chronic, creatinine at baseline Hypoglycemia History of diabetes Regular insulin ordered an ED Plan to continue home medications - Differential Diagnosis dementia, delirium, psychosis, UTI Critical Care Time: No Critical care attestation.: If time is entered above; I have spent that time in minutes in the direct care of this critically ill patient, excluding procedure time. ED Disposition Clinical Impression: UTI (urinary tract infection), Dementia, HTN (hypertension), Diabetes, Noncompliance with medication regimen, Medical clearance for psychiatric admission Disposition: [id number]/[id number] PSY HOSP/PSY UNIT Is pt being admited?: No Condition: Stable Time of Disposition: 06:00
== END 2017-12-20 06:50 ==
LOC: ED 21:53
DX: F03.90 Unspecified dementia, unspecified severity, without behavioral disturbance, psychotic disturbance, mood disturbance, and anxiety (principal); I10 Essential (primary) hypertension; E11.9 Type 2 diabetes mellitus without complications; N39.0 Urinary tract infection, site not specified; Z91.14 Patient's other noncompliance with medication regimen
CPT/HCPCS: 36415; 80048; 80307; 81001; 85025; 96365; 96375; 99285; G0480; J0696; J7030; 80320; J1815; J1885